=== PATIENT | female | born 1965 | race Caucasian/White ===

== ENCOUNTER → 2023-12-02 08:52 | Outpatient (REF) | payer OTHER, SELFPAY | LOC: WDC 08:52 | PROVIDERS: ATTENDING PHYSICIAN Obstetrics & Gynecology Gynecology; FAMILY PHYSICIAN Nurse Practitioner | DX: Z12.31 Encounter for screening mammogram for malignant neoplasm of breast (principal) | CPT/HCPCS: 77063; 77067 ==

== ENCOUNTER 2023-12-19 14:04 | Emergency (ER) | payer OTHER, SELFPAY ==
[2023-12-19 14:06] VITALS: BP 171/97
--- NOTE | 2023-12-19 14:56 | ED.GENMED ---
History of Present Illness
<Marilyn Rajput PA-C - Last Filed: 12/20/23 17:29>
General
Chief Complaint: Abdominal Symptoms
Source: patient
Exam Limitations: none
Time Seen by Provider: 12/19/23 14:31
Nursing documentation reviewed up to this point in time: agreed with
Travel History
Have you had any contact with someone who has COVID-19?: No
Do you have any symptoms of coronavirus? Fever > 100 degrees, chills, cough, shortness of breath, sore throat, loss of taste or smell, muscle aches, or headache?: No
History of Present Illness
History of Present Illness:
Patient is a 58 year old female with no significant past medical history presenting to the emergency department for evaluation of persistent nausea, vomiting, diarrhea. Patient states symptoms initially started on Monday but were improved both
Monday and Monday. Starting this morning�symptoms returned with an associated migraine. She has had multiple episodes of vomiting throughout the day today. She also endorses mild diffuse abdominal pain. She has been unable to keep any food or
water down today. She denies any hematemesis. She denies any hematochezia.
Patient denies any fever, chills, chest pain, shortness of breath.
Of note�patient did have her first injection of Wegovy last prior to symptom onset. She did contact her weight loss specialist who prescribed Wegovy but has not had a chance to speak to them.
Patient has no history of abdominal surgeries. Last menstrual period was many years ago.
Phy Exam
<Marilyn Rajput PA-C - Last Filed: 12/20/23 17:29>
Physical Exam
Physical Exam:
General: Appears moderately uncomfortable, eyes closed, retching on initial evaluation
Vitals: Hypertensive, otherwise vital signs stable; afebrile
HEENT: Atraumatic, normocephalic; pupils equal round reactive light bilaterally, no nystagmus, protecting airway
Neck: appears supple, no meningeal signs
CV: Regular rate and rhythm, heart sounds normal, no evidence of cyanosis
Resp: No accessory muscle use
Abd: Soft, very mild diffuse tenderness without rebound or guarding, non-distended
Extremities: No deformities, no evidence of cyanosis or edema; DP pulses palpable equal bilateral
Neuro: alert and oriented; grossly intact
Psych: Normal affect
Skin: Intact, no rashes
Course
<Marilyn Rajput PA-C - Last Filed: 12/20/23 17:29>
Orders/Labs/Results
Orders:
Orders
12/19/23 14:55
Complete Blood Count/With Diff Urgent
Comprehensive Metabolic Panel Urgent
Lipase Urgent
12/19/23 15:04
Electrocardiogram (*1) Urgent
Reason for Study: QTc Monitoring
EKG- Treatment ONCE
0.9% Sodium Chloride 1000 ml [Nss] 1,000 ml IV BOLUS
Ketorolac [Toradol] 15 mg IV NOW STA
Ondansetron Injectable [Zofran] 4 mg IV NOW STA
12/19/23 15:21
Pantoprazole [Protonix IV] 40 mg IV NOW STA
12/19/23 16:15
0.9% Sodium Chloride 1000 ml [Nss] 1,000 ml IV BOLUS
Diphenhydramine [Benadryl] 25 mg IV NOW STA
Metoclopramide [Reglan] 10 mg IV NOW STA
12/19/23 16:17
CT Head W/o Iv Contrast Urgent
Comment:
Reason For Exam: headache
Abnormal Lab Results
12/19/23
14:55
MPV 11.5 H fL
(7.4-10.4)
Sodium 132 L mmol/L
(135-145)
BUN 19 H mg/dl
(7-17)
Creatinine 0.5 L mg/dL
(0.6-1.0)
Glucose 144 H mg/dl
(70-99)
12/19/23 14:55
12/19/23 14:55
Vital Signs
Initial and Last Documented VS:
Initial Vital Signs
Temp Pulse Resp BP Pulse Ox
97.8 F 81 18 171/97 100
12/19/23 14:06 12/19/23 14:06 12/19/23 14:06 12/19/23 14:06 12/19/23 14:06
Last Documented Vital Signs
Temp Pulse Resp BP Pulse Ox
97.8 F 90 18 171/83 96
12/19/23 14:06 12/19/23 18:45 12/19/23 18:45 12/19/23 18:45 12/19/23 18:45
<Enrique Nieto MD - Last Filed: 12/19/23 21:38>
Orders/Labs/Results
Orders:
Orders
12/19/23 14:55
Complete Blood Count/With Diff Urgent
Comprehensive Metabolic Panel Urgent
Lipase Urgent
12/19/23 15:04
Electrocardiogram (*1) Urgent
Reason for Study: QTc Monitoring
EKG- Treatment ONCE
0.9% Sodium Chloride 1000 ml [Nss] 1,000 ml IV BOLUS
Ketorolac [Toradol] 15 mg IV NOW STA
Ondansetron Injectable [Zofran] 4 mg IV NOW STA
12/19/23 15:21
Pantoprazole [Protonix IV] 40 mg IV NOW STA
12/19/23 16:15
0.9% Sodium Chloride 1000 ml [Nss] 1,000 ml IV BOLUS
Diphenhydramine [Benadryl] 25 mg IV NOW STA
Metoclopramide [Reglan] 10 mg IV NOW STA
12/19/23 16:17
CT Head W/o Iv Contrast Urgent
Comment:
Reason For Exam: headache
Abnormal Lab Results
12/19/23
14:55
MPV 11.5 H fL
(7.4-10.4)
Sodium 132 L mmol/L
(135-145)
BUN 19 H mg/dl
(7-17)
Creatinine 0.5 L mg/dL
(0.6-1.0)
Glucose 144 H mg/dl
(70-99)
12/19/23 14:55
12/19/23 14:55
Vital Signs
Initial and Last Documented VS:
Initial Vital Signs
Temp Pulse Resp BP Pulse Ox
97.8 F 81 18 171/97 100
12/19/23 14:06 12/19/23 14:06 12/19/23 14:06 12/19/23 14:06 12/19/23 14:06
Last Documented Vital Signs
Temp Pulse Resp BP Pulse Ox
97.8 F 90 18 171/83 96
12/19/23 14:06 12/19/23 18:45 12/19/23 18:45 12/19/23 18:45 12/19/23 18:45
<Marilyn Rajput PA-C - Last Filed: 12/20/23 17:29>
MDM/Problems Addressed
Differential Diagnosis Includes:
Not limited to: Medication reaction, gastritis, viral illness, migraine, dehydration, cluster headache doubt intraparenchymal bleed
MDM/Problems Addressed:
Patient is a 58-year-old female presenting for evaluation of 3 days of nausea, vomiting, abdominal pain with associated migraine following first injection of Wegovy. Patient is hypertensive, otherwise vital signs are stable. Exam as above. No
focal tenderness on abdominal exam. Will check basic labs, lipase. Fluids, Toradol, Zofran. Normal QT on EKG. will reassess.
Labs noted. No clinically significant abnormalities. Lipase is normal�do not suspect pancreatitis, known side effect of Wegovy. Given there is no focal tenderness on abdominal exam, normal white count, afebrile�do not suspect acute
intra-abdominal process.
4:00PM: Into reassess patient at bedside. Patient reports mild improvement in nausea following Zofran. She has not vomited since receiving Zofran head is still 'throbbing 'per patient following Toradol. Will try Benadryl and Reglan. Given
severity of headache�will check CT head. Another liter of IV fluids
CT shows no acute abnormalities. Patient with significant improvement in headache. She is tolerating food and water intake. She has been up and walking without any dizziness or worsening of headache. Workup here has been essentially negative�I
suspect the symptoms are likely related to Wegovy injection. Instructed patient to discontinue medication and follow-up with weight loss management/primary care. Will discharge with Zofran. Return precautions discussed. Patient comfortable with
plan.
Chronic conditions affecting care:
Obesity require weight loss medication�Wegovy
Acute Exacerbation and/or Progression of Chronic Illness:
Acute hypertensive
<Marilyn Rajput PA-C - Last Filed: 12/20/23 17:29>
*Radiology
Radiology exam reviewed: preliminary read by ED provider and radiology read reviewed
*Pulse Oximetry
Patient hypoxic: no
*EKG
Interpreted by ED Provider?: Yes
EKG Intrepretation Date: 12/19/23
Interpretation: normal
Heart Rate: 81
Rate: normal
Rhythm: sinus
Interval: normal interval
Ischemia: no ischemia
*Combat Systems Engineer Interpretation
Rate: Combat Systems Engineer- N/A
*Critical Care Note
Total Time (30-74mins, 75-104mins- exclusive of procedures): Not Applicable
ED Attending Note
<Marilyn Rajput PA-C - Last Filed: 12/20/23 17:29>
-
Portions of this chart may have been created with voice recognition software.� Occasional wrong word or��sound alike� substitutions may have occurred due to the inherent limitations of voice recognition software.
<Enrique Nieto MD - Last Filed: 12/19/23 21:38>
ED Attending Note
Patient seen and examined by attending physician: Yes
ED Attending Note:
HPI: 58-year-old female with no significant chronic medical issues presents for evaluation of headache, dizziness, nausea, vomiting, abdominal cramping, diarrhea since starting Wegovy. She had her first dose on and then 2 days later
developed above symptoms. They have been persistent since that time. Denies any neck pain or stiffness. No fevers or chills. No chest pain or shortness of breath. Denies any other complaints.
ROS: Positive for headache, dizziness, nausea, vomiting, diarrhea, abdominal cramping; negative for fever, chills, neck pain, neck stiffness, chest pain, shortness of breath
Physical exam:
General: Awake, alert, oriented x3; appears uncomfortable holding emesis basin
Head: Normocephalic, atraumatic
Eyes: Conjunctiva normal, EOMI, pupils equal round reactive to light bilaterally
Throat: Airway intact, dry mucous membranes
Neck: Trachea midline, supple without meningismus
Lungs: Clear to auscultation bilaterally, no wheezing, rales, rhonchi
Heart: Regular rate and rhythm, no murmurs, gallops, or rubs
Abd: Soft, non distended, completely nontender to deep palpation
Neuro: Cranial nerves intact, speech fluid, no motor or sensory deficits
Skin: no rash
Extremities: No edema in extremities, equal pulses in all extremities
Differential diagnosis: Gastroenteritis, pancreatitis, cholelithiasis/cholecystitis, migraine, vertigo
Medical decision makin-year-old female presents for dizziness, headache, nausea, vomiting, abdominal cramping that started shortly after beginning Wegovy for weight loss. Hypertensive but otherwise normal vitals. Exam as above. Sent labs
including a CBC and CMP which were unremarkable. Lipase is normal. Sent for CT head which was negative. She was treated symptomatically and had significant improvement. Tolerating p.o. food and drink. Ambulatory with no dizziness. Suspect
symptoms likely related to Wegovy. Advised to discontinue this medication. Will follow-up with PCP for blood pressure recheck. All questions answered.
Chronic conditions affecting care: Obesity requiring treatment with Wegovy�now presenting with symptoms likely related to this medication
Acute exacerbation or progression of chronic illness: Acutely hypertensive
History source: Patient, family
Data reviewed: N/A
Medications/testing considered: N/A
Social determinants of health: N/A
Discussion with other providers: N/A
Discharge Plan
Departure
Patient Disposition: Home (Routine Discharge)
Date of Disposition: 12/19/23
Time of Disposition: 18:33
Patient with high blood pressure during this ER visit?: Yes
Condition: Good
Covid-19: Not Applicable
Discharge Problem:
Nausea and vomiting, Headache
Instructions: Nausea and Vomiting, Adult (DC), Headache, Adult (DC)
Prescriptions:
New
ondansetron 4 mg tablet,disintegrating
4 mg PO Q8H PRN (Reason: nausea and vomiting) Qty: 10 0RF
No Action
alprazolam 0.5 MG tablet
0.25 mg PO Q6HPRN PRN (Reason: ANXIETY)
calcium carbonate [calcium] 500 MG tablet
500 mg PO DAILY
escitalopram oxalate 20 MG tablet
20 mg PO DAILY
cholecalciferol (vitamin D3) 1,000 UNITS tablet
1,000 units PO DAILY
multivitamin with folic acid [Tab-A-Slim] 1 TABLET tablet
1 tab PO DAILY
Quercetin
1 tab PO DAILY
Zinc
1 tab PO DAILY
omeprazole 10 MG capsule,delayed release(DR/EC)
10 mg PO PRN PRN (Reason: reflux)
Referrals:
Verdolini,Erendira Karli, QUILLER HAND [Family Provider] - Follow up in 2-3 days
Activity Restrictions/Additional Instructions:
- Return to the emergency department with any high fevers, severe headache or neck pain, persistent nausea/vomiting, severe abdominal pain, signs of severe dehydration, chest pain, shortness of breath, worsening in current symptoms, or any other
concerns
-As discussed�you can take Motrin/Tylenol as needed for headache. A prescription for Zofran has been sent to your pharmacy for nausea. You can take this every 8 hours as needed for persistent/severe nausea
-It is important to stay well-hydrated. Try to eat a bland diet and advance as tolerated.
-As discussed�you should not take any more doses of your Wegovy until you follow-up with your prescribing physician for further evaluation/management.
-Follow-up with your primary care provider to ensure symptoms are improving the next few days.
Interventions
Interventions:
*Risk Screen - Suicide Last Done: 12/19/23 14:11
*General Assessment Last Done: 12/19/23 18:46
*Neglect/Abuse Screening Last Done: 12/19/23 14:11
ED- Fall Risk Assessment Last Done: 12/19/23 18:46
*ED COVID-19 Vaccine History Last Done: 12/19/23 14:06
*Nursing Disposition Last Done: 12/19/23 18:46
NU-Vpvixc-Eqnlsslwox Assessment Last Done: 12/19/23 14:51
Discharge Date and Time
Discharge Date/Time: 12/19/23 18:46
Print Language: BOTSWANAN
[2023-12-19 15:07] LABS: % Basophils 0.7 % (0-2); % Eosinophils 0.7 % (0-6); % Immature Granulocytes 0.3 % (0-0.5); % Lymphocytes 27.4 % (20.5-51.1); % Monocytes 7.9 % (1.7-9.3); Absolute Lymphocytes 1.6 10^3/uL (1.2-3.4); Absolute Monocytes 0.5 10^3/uL (0.1-0.6); Absolute Neutrophils 3.7 10^3/uL (1.4-6.5); Hematocrit 44.2 % (37.0-47.0); Hemoglobin 15.3 g/dL (12.0-16.0); Mean Corp Hgb Conc. 34.6 g/dL (33.0-37.0); Mean Corpuscular Hgb 29.8 pg (27.0-31.0); Mean Platelet Volume 11.5 fL (7.4-10.4); Nucleated Red Blood Cells % 0 %; Platelet Count 190 10^3/uL (130-400); Red Blood Cell Count 5.14 10^6/uL (4.20-5.40); Red Cell Dist. Width 12.3 % (11.5-14.5); White Blood Cell Count 5.9 10^3/uL (4.8-10.8)
[2023-12-19] MEDS: ZOFRAN 4 MG IV (15:12)
[2023-12-19] MEDS: NSS 1000 IV ×2 (15:12→16:25)
[2023-12-19] MEDS: TORADOL 15 MG IV (15:12)
[2023-12-19 15:21] LABS: ALT (SGPT) 33 U/L (0-35); AST (SGOT) 33 U/L (14-36); Albumin 4.9 g/dl (3.5-5.0); Alkaline Phosphatase 85 U/L (38-126); Blood Urea Nitrogen 19 mg/dl (7-17); Calcium 10.1 mg/dl (8.4-10.2); Carbon Dioxide 24 mmol/L (22-30); Chloride 99 mmol/L (98-107); Glucose 144 mg/dl (70-99); Lipase 66 U/L (23-300); Potassium 3.8 mmol/L (3.5-5.1); Sodium 132 mmol/L (135-145); Total Bilirubin 0.8 mg/dl (0.2-1.3); Total Protein 7.9 g/dl (6.3-8.2); eGFR > 60.00
[2023-12-19] MEDS: PROTONIX IV 40 MG IV (15:34)
[2023-12-19] MEDS: BENADRYL 25 MG IV (16:22)
[2023-12-19] MEDS: REGLAN 10 MG IV (16:22)
[2023-12-19 18:45] VITALS: BP 171/83
== END 2023-12-19 18:46 | disposition home or self-care (01) ==
LOC: EMR 14:04
PROVIDERS: Physician Assistant; EMERGENCY PHYSICIAN Emergency Medicine; FAMILY PHYSICIAN Nurse Practitioner
DX: R11.2 Nausea with vomiting, unspecified (principal); R51.9 Headache, unspecified; R10.9 Unspecified abdominal pain; R42 Dizziness and giddiness; E66.9 Obesity, unspecified; R03.0 Elevated blood-pressure reading, without diagnosis of hypertension
CPT/HCPCS: 99285; 96374; 96375 ×4; 96361; 70450; 80053; 83690; 85025; 93005

== ENCOUNTER 2024-05-31 17:18 | Observation (INO) | payer OTHER, SELFPAY ==
[2024-05-31] VITALS (7 sets, daily range): BP systolic 119–210; BP diastolic 65–106; BMI 29.3; BMI 29.6
--- NOTE | 2024-05-31 13:06 | ED.GENMED ---
ED Provider Triage
<Anthony Clement PA-C - Last Filed: 05/31/24 13:10>
-
Patient seen by provider in Triage?: Seen in Triage
Attestation: A medical screening examination has been initiated by a qualified medical provider. Based on the assessment performed at this time, it has been determined that an emergent medical condition may exist and the patient has been informed
that further medical evaluation and possible additional diagnostic testing may be needed.
HPI: 59-year-old female presenting to the emergency department for evaluation after about an hour prior to arrival to the ER she started to experience some word finding difficulty. Is currently here with her daughter but daughter was not present at
time of these events. Patient also notes feeling a little bit nauseous and tingling in her fingertips. She states that symptoms are now mostly resolved. Patient has no history of stroke and no family history of stroke. No cigarettes or tobacco
use. Patient's blood pressure in triage noted to be 188/[address] of the head ordered given patient's current hypertension. Possible TIA versus hypertensive encephalopathy versus anxiety as patient does note she is very anxious
and has a history of anxiety.
GENERAL: Alert , in no apparent distress
EYE: No visual abnormalities.
NECK: Trachea midline
ENT: No visible abnormalities.
LUNGS: No acute respiratory distress
NEUROLOGICAL: Alert and oriented
SKIN: Skin intact. No visible changes.
MUSCULOSKELETAL: Moving extremities normally
PSYCH: Normal and appropriate interaction.
This is a medical evaluation conducted in person to initiate diagnostic evaluation and provide initial therapeutics. Please see further documentation by the treating clinician.
History of Present Illness
<Anthony Clement PA-C - Last Filed: 05/31/24 13:10>
General
Chief Complaint: Change in Mental Status
Time Seen by Provider: 05/31/24 16:48
<Buck Banks MD - Last Filed: 05/31/24 19:15>
General
Source: patient
Exam Limitations: none
History of Present Illness
History of Present Illness:
Patient around noon time noted some slight right visual issues and trouble reading. This was followed by difficulty with words that lasted an hour. She said the wrong words were coming out of her mouth where they did not make sense. Symptoms have
resolved. No history of same. History of anxiety in the past.
Past History
<Buck Banks MD - Last Filed: 05/31/24 19:15>
Past History
ED Past Medical History: Psychiatric
ED Past Surgical History: Orthopedic
Review of Systems
<Buck Banks MD - Last Filed: 05/31/24 19:15>
Review of Systems
All Other Systems: Not applicable
Respiratory: Reports no symptoms
Cardiac: Reports no symptoms
Phy Exam
<Buck Banks MD - Last Filed: 05/31/24 19:15>
Physical Exam
Physical Exam:
GENERAL: Alert and oriented in no apparent distress
EYE: Orbits normal.
NECK: Supple, no carotid bruit.
ENT: Pharynx without erythema
CARDIAC: Regular rate and rhythm without any obvious murmurs.
LUNGS: Clear breath sounds,normal
ABDOMEN: Soft, without focal tenderness or distention
NEUROLOGICAL: Alert and oriented , speech normal. Finger to nose normal. No drift. Cranial nerves II through XII intact. Light touch intact.
SKIN: Warm and dry, no rash or lesion, no discoloration, skin intact.
MUSCULOSKELETAL: No edema,no deformity.Good color
PSYCH: Normal and appropriate interaction.
Course
<Anthony Clement PA-C - Last Filed: 05/31/24 13:10>
Orders/Labs/Results
Orders:
Orders
05/31/24 13:08
CT Head W/o Iv Contrast Urgent
Comment:
Reason For Exam: word finding difficulty, HTN
05/31/24 13:19
Comprehensive Metabolic Panel Urgent
05/31/24 16:36
Complete Blood Count/With Diff Urgent
05/31/24 16:59
Cardiac Monitoring- Treatment ONCE
IV Insert/Care/Rem.- Treatment PRN
05/31/24 17:00
Electrocardiogram (*1) Stat
Reason for Study: Other
Other Reason for Exam: neuro symptoms
EKG- Treatment ONCE
05/31/24 17:04
Admit/Transfer Patient As Directed
Co-Sign Provider:
Level of Care: Observation services
Assign to:: Telemetry
Physician / Group: alcony
Diagnosis: tia
Reason for Telemetry: CVA/TIA
Date to Stop Telemetry: 06/03/24
Time to Stop Telemetry: 11:00
Code Status As Directed
Resuscitation Status: Full Code
PRN Pain Medication Management As Directed
May give lesser potent ordered pain med per pt: Yes
preference::
Protocol:: Medication orders for pain may be administered in a
manner that supports deferring to patient preference
when the pt is:
- Requesting an ordered lesser potent pain medication.
Least to most potent pain medications are defined
as: acetaminophen < NSAID < tramadol < opioids
(morphine, oxycodone, hydromorphone).
- Requesting a lesser dose of the same medication IF
ORDERED.
- Requesting a less intrusive route of administration
if both routes are prescribed by the provider (PO <
IV).
06/03/24 11:00
DC Protocol for Telemetry ONCE
Abnormal Lab Results
05/31/24 05/31/24
13:19 16:36
Hgb 16.2 H g/dL
(12.0-16.0)
MPV 11.5 H fL
(7.4-10.4)
BUN 23 H mg/dl
(7-17)
Glucose 125 H mg/dl
(70-99)
05/31/24 16:36
05/31/24 13:19
Vital Signs
Initial and Last Documented VS:
Initial Vital Signs
Pulse Resp BP Pulse Ox
82 18 176/104 100
05/31/24 13:05 05/31/24 13:05 05/31/24 13:05 05/31/24 13:05
Last Documented Vital Signs
Temp Pulse Resp BP Pulse Ox
98.6 F 84 20 201/81 98
05/31/24 15:02 05/31/24 17:15 05/31/24 17:15 05/31/24 17:00 05/31/24 17:15
<Buck Banks MD - Last Filed: 05/31/24 19:15>
Orders/Labs/Results
Orders:
Orders
05/31/24 13:08
CT Head W/o Iv Contrast Urgent
Comment:
Reason For Exam: word finding difficulty, HTN
05/31/24 13:19
Comprehensive Metabolic Panel Urgent
05/31/24 16:36
Complete Blood Count/With Diff Urgent
05/31/24 16:59
Cardiac Monitoring- Treatment ONCE
IV Insert/Care/Rem.- Treatment PRN
05/31/24 17:00
Electrocardiogram (*1) Stat
Reason for Study: Other
Other Reason for Exam: neuro symptoms
EKG- Treatment ONCE
05/31/24 17:04
Admit/Transfer Patient As Directed
Co-Sign Provider:
Level of Care: Observation services
Assign to:: Telemetry
Physician / Group: htay
Diagnosis: tia
Reason for Telemetry: CVA/TIA
Date to Stop Telemetry: 06/03/24
Time to Stop Telemetry: 11:00
Code Status As Directed
Resuscitation Status: Full Code
PRN Pain Medication Management As Directed
May give lesser potent ordered pain med per pt: Yes
preference::
Protocol:: Medication orders for pain may be administered in a
manner that supports deferring to patient preference
when the pt is:
- Requesting an ordered lesser potent pain medication.
Least to most potent pain medications are defined
as: acetaminophen < NSAID < tramadol < opioids
(morphine, oxycodone, hydromorphone).
- Requesting a lesser dose of the same medication IF
ORDERED.
- Requesting a less intrusive route of administration
if both routes are prescribed by the provider (PO <
IV).
06/03/24 11:00
DC Protocol for Telemetry ONCE
Abnormal Lab Results
05/31/24 05/31/24
13:19 16:36
Hgb 16.2 H g/dL
(12.0-16.0)
MPV 11.5 H fL
(7.4-10.4)
BUN 23 H mg/dl
(7-17)
Glucose 125 H mg/dl
(70-99)
05/31/24 16:36
05/31/24 13:19
Vital Signs
Initial and Last Documented VS:
Initial Vital Signs
Pulse Resp BP Pulse Ox
82 18 176/104 100
05/31/24 13:05 05/31/24 13:05 05/31/24 13:05 05/31/24 13:05
Last Documented Vital Signs
Temp Pulse Resp BP Pulse Ox
98.6 F 84 20 201/81 98
05/31/24 15:02 05/31/24 17:15 05/31/24 17:15 05/31/24 17:00 05/31/24 17:15
<Buck Banks MD - Last Filed: 05/31/24 19:15>
MDM/Problems Addressed
Differential Diagnosis Includes:
Patient is describing expressive aphasia with some visual issues. Neurologic exam is normal now. Warrants inpatient workup
<Buck Banks MD - Last Filed: 05/31/24 19:15>
*Radiology
Radiology exam reviewed: radiology read reviewed (Negative)
*Pulse Oximetry
Patient hypoxic: no
*EKG
Interpreted by ED Provider?: Yes
Interpretation: normal
Comparison EKG: no changes
Heart Rate: 67
Rate: normal
Rhythm: sinus
Challenge: normal axis
Interval: normal interval
QRS Pattern: normal QRS
Ischemia: no ischemia
*Assistant Associate Professor Interpretation
Rate: normal
Interpretation: normal
Heart Rate: 70
Rhythm: sinus
*Critical Care Note
Total Time (30-74mins, 75-104mins- exclusive of procedures): Not Applicable
Data Reviewed
Review of Other/Old Records Reveals: Labs, Records and Testing
ED Attending Note
<Anthony Clement PA-C - Last Filed: 05/31/24 13:10>
-
Portions of this chart may have been created with voice recognition software.� Occasional wrong word or��sound alike� substitutions may have occurred due to the inherent limitations of voice recognition software.
Discharge Plan
Departure
Patient Disposition: Admit
Date of Disposition: 05/31/24
Time of Disposition: 17:05
Presentation/result/management discussed w/ accepting MD/DO: Hospitalist
Discharge Problem:
Expressive aphasia/TIA
Interventions
Interventions:
*Risk Screen - Suicide Last Done: 05/31/24 13:05
*General Assessment Last Done: 05/31/24 13:05
*Neglect/Abuse Screening Last Done: 05/31/24 16:23
ED- Fall Risk Assessment Last Done: 05/31/24 16:23
*ED COVID-19 Vaccine History Last Done: 05/31/24 13:05
ED- Pulmonary Assessment Last Done: 05/31/24 16:23
ED- Neurological Assessment Last Done: 05/31/24 16:23
ED- Cardiac Assessment Last Done: 05/31/24 16:23
ED Swallowing Screen Last Done: 05/31/24 17:22
[2024-05-31 13:47] LABS: ALT (SGPT) 26 U/L (0-35); AST (SGOT) 28 U/L (14-36); Albumin 4.6 g/dl (3.5-5.0); Alkaline Phosphatase 73 U/L (38-126); Blood Urea Nitrogen 23 mg/dl (7-17); Calcium 9.4 mg/dl (8.4-10.2); Carbon Dioxide 26 mmol/L (22-30); Chloride 101 mmol/L (98-107); Glucose 125 mg/dl (70-99); Potassium 4.3 mmol/L (3.5-5.1); Sodium 139 mmol/L (135-145); Total Bilirubin 0.7 mg/dl (0.2-1.3); eGFR > 60.00
[2024-05-31 16:44] LABS: % Basophils 0.6 % (0-2); % Eosinophils 1.2 % (0-6); % Immature Granulocytes 0.3 % (0-0.5); % Lymphocytes 26.2 % (20.5-51.1); % Monocytes 6.4 % (1.7-9.3); % Neutrophils 65.3 % (42.2-75.2); Absolute Eosinophils 0.1 10^3/uL (0-0.7); Absolute Lymphocytes 1.9 10^3/uL (1.2-3.4); Absolute Monocytes 0.5 10^3/uL (0.1-0.6); Absolute Neutrophils 4.7 10^3/uL (1.4-6.5); Hemoglobin 16.2 g/dL (12.0-16.0); Mean Corp Hgb Conc. 35.2 g/dL (33.0-37.0); Mean Corpuscular Hgb 30.6 pg (27.0-31.0); Mean Corpuscular Volume 86.8 fL (81.0-99.0); Mean Platelet Volume 11.5 fL (7.4-10.4); Nucleated Red Blood Cells % 0 %; Platelet Count 195 10^3/uL (130-400); Red Cell Dist. Width 12.6 % (11.5-14.5); White Blood Cell Count 7.2 10^3/uL (4.8-10.8)
--- NOTE | 2024-05-31 17:14 | HPS.HSE ---
Family Physician
-
Family Physician: Noé Posadas
Chief Complaint
-
some word finding difficulty
History of Present Illness
59F non smoker BiB daughter HX Anxiety and depression on PRN Alprazolam and Escitalopram seen at ER
- pw experience some word finding difficulty
- feeling a little bit nauseous and tingling in her fingertips.
- She states that symptoms are now mostly resolved.
- No prior HX stroke and no family history of stroke.
- Patient's blood pressure in triage noted to be 188/[address] of the head ordered given patient's current hypertension.
Medical History
Past Medical History
Past Medical History: Reports HTN (was listed but not on any meds ) and Psychiatric (anxiey and depression )
Past Surgical History: Reports None
Social History
Tobacco: Non-smoker
Alcohol: None
Family History
Family History: Not pertinent
Allergies / Home Medications
Allergies reflects when Allergies were last updated in [facility].
Home Medications with original date entered in [facility]
Allergy/Medication List:
Allergies
Allergy/AdvReac Type Severity Reaction Status Date / Time
nitrofurantoin Allergy RASH/ITCHIN Verified 05/31/24 13:10
G
Home Medications
Quercetin 1 tab PO DAILY 11/19/20
Zinc 1 tab PO DAILY 11/19/20
alprazolam 0.5 mg tablet 0.25 mg PO Q6HPRN PRN ANXIETY 11/19/20
calcium carbonate (calcium) 500 mg PO DAILY 11/19/20
cholecalciferol (vitamin D3) 25 mcg (1,000 unit) tablet 1,000 units PO DAILY 11/19/20
escitalopram oxalate 20 mg tablet 20 mg PO DAILY 11/19/20
multivitamin with folic acid 400 mcg tablet (Tab-A-Slim) 1 tab PO DAILY 11/19/20
omeprazole 10 mg capsule,delayed release 10 mg PO PRN PRN reflux 11/27/20
ondansetron 4 mg disintegrating tablet 4 mg PO Q8H PRN nausea and vomiting #10 tabs 12/19/23
Review of Systems
-
Constitutional: Reports No Symptoms
EENT: Reports No Symptoms
Respiratory: Reports No Symptoms
Cardiac: Reports No Symptoms
Abdomen/GI: Reports No Symptoms
: Reports No Symptoms
Musculoskeletal: Reports No Symptoms
Skin: Reports No Symptoms
Neurological: Reports No Symptoms
Endocrine: Reports No Symptoms
Hematologic/Lymphatic: Reports No Symptoms
Psych: Reports No Symptoms
Physical Exam
Vital Signs
Vital Signs
Temp Pulse Resp BP Pulse Ox
98.6 F 66 18 165/89 100
05/31/24 15:02 05/31/24 15:02 05/31/24 13:05 05/31/24 15:02 05/31/24 16:23
Physical Exam
General: Well Developed, Well Nourished and No Apparent Distress
HEENT: NormoCephalic, Moist mucous membranes and Atraumatic
Respiratory: Clear
Cardiac: S1/S2 and Regular Rhythm; No Murmur or Rub
GI: Soft, Non Tender, Non Distended and Normal Bowel Sounds; No Organomegaly
Rectal: Deferred by Provider
Musculoskeletal: No Clubbing, No Cyanosis and No Edema
Skin: No Rash
Neuro: AO x 3, No Motor Deficits and Nonfocal/grossly intact
Laboratory Results
-
05/31/24 16:36
05/31/24 13:19
Laboratory Results
Total Bilirubin 0.7 mg/dl (0.2-1.3) 05/31/24 13:19
AST 28 U/L (14-36) 05/31/24 13:19
ALT 26 U/L (0-35) 05/31/24 13:19
Alkaline Phosphatase 73 U/L (38-126) 05/31/24 13:19
Data Reviewed
-
CT Scan: Report Reviewed by me
Lab Data: Labs Reviewed by me
Impression/Plan
-
Vital Signs
Temp Pulse Resp BP Pulse Ox
98.6 F 66 18 165/89 100
05/31/24 15:02 05/31/24 15:02 05/31/24 13:05 05/31/24 15:02 05/31/24 16:23
Abnormal Lab Results
05/31/24 05/31/24
13:19 16:36
Hgb 16.2 H
MPV 11.5 H
BUN 23 H
Glucose 125 H
HCT: No acute intracranial abnormality.
No prior hospitalist admission:
ASSESSMENT & PLAN
Possible TIA versus hypertensive encephalopathy versus anxiety
-No prior HX CVA
- NEG HCT
- Brain MRI in AM
- MRA H & N
- ECHO
- agree with baby ASA daily
- Atorvastatin daily
- A1 C and lipids
- c/w Xanax PRN
- Neuro consulted
Uncontrol HTN
- IV Hydralazine PRN SBP > 185, DBP > 110
DVT Px:SCD
Code: full code
Obs TLM
--- NOTE | 2024-05-31 18:04 | CON.NEURO ---
Consultation
Order
Date of Consultation: 05/31/24
Requesting Provider: Maribel Vaz CRNP
Reason for Consult: Expressive aphasia
Neurology consultation note
HPI: The patient presents with a chief complaint of sudden difficulty in expressing thoughts lasting for 30 minutes. She reports that she started to garble her words and became very nervous. She removed her contacts due to the blurry vision. The
patient mentions that she was unable to greet her neighbor while walking her dog, which prompted her to seek medical attention.
The patient states that her ability to express thoughts has returned to normal and denies any weakness on one side. The patient denies having headaches at the moment and does not have a history of migraines. She denies any changes in vision or
tingling in her body, except when experiencing anxiety.
The patient has never experienced a similar episode before and consumes 2-3 cups of coffee daily.
ER VS: 176/83�210/84, 82, afebrile
EKG: NSR, QTc Int : 424 ms
PDMP: Alprazolam 0.25 Mg�60 tabs filled in on 02/13/2024.
Labs: Normal sodium, WBCs, glucose�125,
PMH: QUINTEN, vit D deficiency, GERD
PSH:D&C and R carpal tunnel surgery
SH: ; works for [employer]; nonsmoker;
FH:father-CML
All:Nitrofurantoin
ROS:Constitutional: Negative. Negative for chills, fever and unexpected weight change.
HENT: Negative for ear pain, hearing loss, tinnitus and trouble swallowing.
Eyes: Negative. Negative for photophobia, pain and visual disturbance.
Respiratory: Negative for cough, choking and shortness of breath.
Cardiovascular: Negative for chest pain, palpitations and leg swelling.
Gastrointestinal: Negative for abdominal pain and vomiting.
Endocrine: Negative. Negative for cold intolerance.
Genitourinary: Negative for dysuria, flank pain and urgency.
Musculoskeletal: Negative for back pain, gait problem, neck pain and neck stiffness.
Skin: Negative for rash.
Allergic/Immunologic: Negative. Negative for immunocompromised state.
Neurological: Negative for dizziness, tremors, seizures, speech difficulty, numbness and headaches.
Psychiatric/Behavioral: Negative for behavioral problems, confusion and hallucinations.
General: Well developed. In no acute distress.
Cardio: Regular rate and rhythm without murmur. Extremities are without cyanosis or edema.
Neuro:
Mental Status: Alert, oriented to person, place, and date. Normal attention and recall. Good fund of knowledge. Follows complex requests across the midline. Comprehension, naming, and repetition intact. Immediate and delayed recall 3/3.
Cranial Nerves: . Pupils are equally round and reactive to light. EOMs full. Visual campbell full to confrontation. No ptosis. No nystagmus. V1-V3 intact to light touch and pinprick bilaterally, symmetric. Face symmetric. Normal hearing AU.
The palate elevated well. SCMs and traps 5/5. Tongue midline. No dysarthria.
Motor: Normal bulk and tone. No pronator or arm drift. Strength 5/5 throughout. No clonus.
Reflexes: 3+ throughout the upper extremities and knees. 2/2 in AJs. Plantar responses flexor bilaterally.
Sensory: Normal pinprick, vibration and JPS.
Coordination: No dysmetria or tremor.
Gait: deferred
Assessment and Plan:
I. Hypertensive emergency
II. Right MCA territory TIA
III. QUINTEN
-Continue Telemetry monitoring.
-Aspiration precautions.
-Cautious lowering of BP by approximately 15 % during the first 24 hours is SBP >220 mmHg or diastolic blood pressure >120 mmHg;
-Restart antihypertensive medications during if BP>140/90 mmHg who are neurologically stable in 24 to 48 hours after stroke onset;
-TTE with bubble studies, if unremarkable-please proceed with EBEN.
-Start ASA 81 mg QD
-Plavix 75 mg QD for 21 days.
-Lipitor 40 mg QHS.
-Please check HbA1C, LDL.
-PT.
-DVT prophylaxis.
I personally reviewed all radiology and labs along with past medical records pertinent to current medical problems. Total time spent in patient care is 60 minutes.
Thank you for allowing us to participate in the care of this patient. We will continue to follow. Please do not hesitate to contact us with any questions or concerns.
Subjective/Objective
Subjective Data
Date of Service: May 31, 2024
Objective Data
Vital Signs
Temp Pulse Resp BP Pulse Ox
37.0 C 84 20 201/81 98
05/31/24 15:02 05/31/24 17:15 05/31/24 17:15 05/31/24 17:00 05/31/24 17:15
Lab Results
05/31/24 16:36
05/31/24 13:19
Sodium 139 mmol/L (135-145) 05/31/24 13:19
Potassium 4.3 mmol/L (3.5-5.1) 05/31/24 13:19
BUN 23 mg/dl (7-17) H 05/31/24 13:19
Glucose 125 mg/dl (70-99) H 05/31/24 13:19
Calcium 9.4 mg/dl (8.4-10.2) 05/31/24 13:19
Patient Allergies
nitrofurantoin Allergy (Verified 05/31/24 13:10)
RASH/ITCHING
Medications
-
Home Medications
�Medication �Instructions �Recorded
Quercetin 1 tab PO DAILY 11/19/20
Zinc 1 tab PO DAILY 11/19/20
alprazolam 0.5 mg tablet 0.25 mg PO Q6HPRN PRN ANXIETY 11/19/20
calcium carbonate (calcium) 500 mg PO DAILY 11/19/20
cholecalciferol (vitamin D3) 25 1,000 units PO DAILY 11/19/20
mcg (1,000 unit) tablet
escitalopram oxalate 20 mg tablet 20 mg PO DAILY 11/19/20
multivitamin with folic acid 400 1 tab PO DAILY 11/19/20
mcg tablet (Tab-A-Slim)
omeprazole 10 mg capsule,delayed 10 mg PO PRN PRN reflux 11/27/20
release
ondansetron 4 mg disintegrating 4 mg PO Q8H PRN nausea and 12/19/23
tablet vomiting #10 tabs
--- NOTE | 2024-05-31 22:00 | PTCARENOTE ---
Patient admitted from ED. AAO x3, on RA, in no acute distress. Patient oriented to room and call dejesus within reach.
[2024-05-31] MEDS: XANAX 0.25 MG PO (22:22)
[2024-05-31] MEDS: LIPITOR 20 MG PO (22:22)
[2024-06-01 03:00] VITALS: BP 105/56
[2024-06-01 07:35] VITALS: BP 162/97
[2024-06-01] MEDS: XANAX 0.25 MG PO (08:26)
[2024-06-01] MEDS: LOW STRENGTH ASPIRIN 81 MG PO (08:26)
[2024-06-01] MEDS: PLAVIX 75 MG PO (08:26)
[2024-06-01 08:28] LABS: Hematocrit 44.5 % (37.0-47.0); Hemoglobin 15.6 g/dL (12.0-16.0); Mean Corp Hgb Conc. 35.1 g/dL (33.0-37.0); Mean Corpuscular Hgb 30.7 pg (27.0-31.0); Mean Corpuscular Volume 87.6 fL (81.0-99.0); Mean Platelet Volume 11.9 fL (7.4-10.4); Platelet Count 179 10^3/uL (130-400); Red Blood Cell Count 5.08 10^6/uL (4.20-5.40); Red Cell Dist. Width 12.8 % (11.5-14.5); White Blood Cell Count 4.4 10^3/uL (4.8-10.8)
[2024-06-01 08:59] LABS: Blood Urea Nitrogen 16 mg/dl (7-17); Calcium 9.5 mg/dl (8.4-10.2); Carbon Dioxide 28 mmol/L (22-30); Chloride 101 mmol/L (98-107); Estimated Creatinine Clearance 83 ml/min; Glucose 95 mg/dl (70-99); HDL Cholesterol 36 mg/dl; LDL Cholesterol, Calculated 143 mg/dl; Potassium 4.3 mmol/L (3.5-5.1); Sodium 141 mmol/L (135-145); Total Cholesterol 218 mg/dl (50-199); Triglyceride 195 mg/dl (10-149); Very Low Density Lipoprotein 39 mg/dl (0-30); eGFR > 60.00
--- NOTE | 2024-06-01 10:00 | PTOTSP ---
SPEECH THERAPY SWALLOW EVALUATION:
Patient exhibits grossly functional oropharyngeal swallow at this time. No history of dysphagia noted. Patient admitted with speech difficulty lasting 30 minutes per pt report, with full resolution of symptoms at this time per pt report. No overt
speech/language/cognitive communication impairments noted during informal assessment. Recommend continue Regular texture solids, thin liquids. Medications whole with liquid as best tolerated. General aspiration precautions. Skilled ST services for
swallow therapy are not indicated at this time. ST to monitor MRI results/diagnosis. Should MRI demonstrate intracranial abnormality, ST to complete full speech/language/cognitive communication evaluation at that time. Otherwise ST to sign off.
RECOMMEND:
1) Regular texture diet, thin liquids
2) Medications whole with liquid as best tolerated
3) General aspiration precautions
4) No skilled ST services for swallow are indicated at this time
[2024-06-01 11:31] VITALS: BP 136/85
[2024-06-01 11:31] LABS: Glycohemoglobin (HgbA1c) 5.1 % (4.0-5.6)
--- NOTE | 2024-06-01 11:37 | W.PN.HOSP.TC ---
Addendum entered and electronically signed by Ej Tello MD 06/01/24 15:33:
Discussed MRI results with patient. Discussed with neurology recommending dual antiplatelet agents for additional 20 days. Patient agreeable for discharge home. Also agreed to be started on blood pressure medication.
More than 30 minutes spent in discharge including
Final examination of the patient
Summarizing hospital stay
Instructions for continuing care to all relevant caregivers
Preparation of discharge records, prescriptions, and referral forms
Total time spent (in minutes): 53
Original Note:
Today's Communication/Plan
-
await imaging results
asa/plavix
monitor BP
HOME MED REC
Assessment / Plan
Assessment / Plan
Possible TIA versus hypertensive encephalopathy versus anxiety
-No prior HX CVA
- NEG HCT
- Brain MRI
- MRA H & N
- ECHO probably as outpatient-dependign on MRI
- Started on dual antiplatelet agents aspirin and Plavix per neurology
- Atorvastatin daily
- A1c of 5.1. Total cholesterol and LDL elevated. Increase Lipitor dose
- c/w Xanax PRN
- Cont with neuro checks
- Neuro consulted
Uncontrol HTN
- IV Hydralazine PRN SBP > 185, DBP > 110
-Start bp meds 24h later after symptoms onset.
Severe anxiety disorder
-Recommend OP psych f/u
DVT Px:SCD
Code: full code
discussed with spouse at bedside in detail
Awaiting home med rec
Anticipated Discharge: Within 24 hours
Subjective/Interval History
-
Date of Service: June 01, 2024
Denies any numbing tingling
Denies any weakness
Denies any headache vision problems neck pain
States of severe anxiety
Objective Data
-
Labs:
Laboratory Results
10/12/24
07:35
WBC 4.4 L
Hgb 15.6
Hct 44.5
Plt Count 179
Sodium 141
Potassium 4.3
Chloride 101
Carbon Dioxide 28
BUN 16
Creatinine 0.6
Glucose 95
Calcium 9.5
Vital Signs:
Vital Signs
Temp Pulse Resp BP Pulse Ox
98.7 F 73 18 136/85 95
06/01/24 11:31 06/01/24 11:31 06/01/24 11:31 06/01/24 11:31 06/01/24 11:31
I&O
05/31/24 06/01/24 06/02/24
06:59 06:59 06:59
Intake Total 480 / 480
Balance 480 / 480
Physical Exam
-
General: Well Developed and No Apparent Distress
HEENT: Normocephalic, Atraumatic and Moist Mucous Membranes
Respiratory: Clear to Auscultation
Cardiac: Regular Rhythm and S1/S2; Negative Murmur, Rub or Gallop
GI: Soft, Nontender, Nondistended and Normal Bowel Sounds; Negative Organomegaly
Rectal: Deferred by Provider
Musculoskeletal: No Clubbing, No Cyanosis and No Edema
Skin: Negative Rash
Neuro: Awake, Alert, Oriented, AO x 3, No Motor Deficits, Nonfocal/Grossly Intact and Central Nerve's Intact; Negative Tremors, Sedated, Slurred Speech or Facial Droop
--- NOTE | 2024-06-01 12:00 | W.PN.NEURO.1 ---
Today's Communication / Plan
-
.
Subjective/Objective
Subjective Data
Date of Service: June 01, 2024
Neurology follow up note
Ms. Machuca reports worsening of anxiety symptoms. No recurrent spells of expressive aphasia. Her blood pressure has improved.
LDL 143, HbA1C 5.1.
Brain MRI showed no acute infarcts.
PMH: QUINTEN, vit D deficiency, GERD
PSH:D&C and R carpal tunnel surgery
SH: ; works for [employer], [employer]; nonsmoker;
FH:father-CML
All:Nitrofurantoin
ROS:Constitutional: Negative. Negative for chills, fever and unexpected weight change.
HENT: Negative for ear pain, hearing loss, tinnitus and trouble swallowing.
Eyes: Negative. Negative for photophobia, pain and visual disturbance.
Respiratory: Negative for cough, choking and shortness of breath.
Cardiovascular: Negative for chest pain, palpitations and leg swelling.
Gastrointestinal: Negative for abdominal pain and vomiting.
Endocrine: Negative. Negative for cold intolerance.
Genitourinary: Negative for dysuria, flank pain and urgency.
Musculoskeletal: Negative for back pain, gait problem, neck pain and neck stiffness.
Skin: Negative for rash.
Allergic/Immunologic: Negative. Negative for immunocompromised state.
Neurological: Negative for dizziness, tremors, seizures, speech difficulty, numbness and headaches.
Psychiatric/Behavioral: Negative for behavioral problems, confusion and hallucinations.
General: Well developed. In no acute distress.
Cardio: Regular rate and rhythm without murmur. Extremities are without cyanosis or edema.
Neuro:
Mental Status: Alert, oriented to person, place, and date. Normal attention and recall. Good fund of knowledge. Follows complex requests across the midline. Comprehension, naming, and repetition intact. Immediate and delayed recall 3/3.
Cranial Nerves: . Pupils are equally round and reactive to light. EOMs full. Visual campbell full to confrontation. No ptosis. No nystagmus. V1-V3 intact to light touch and pinprick bilaterally, symmetric. Face symmetric. Normal hearing AU.
The palate elevated well. SCMs and traps 5/5. Tongue midline. No dysarthria.
Motor: Normal bulk and tone. No pronator or arm drift. Strength 5/5 throughout. No clonus.
Reflexes: 3+ throughout the upper extremities and knees. 2/2 in AJs. Plantar responses flexor bilaterally.
Sensory: Normal pinprick, vibration and JPS.
Coordination: No dysmetria or tremor.
Gait: deferred
Assessment and Plan:
I. Hypertensive emergency
II. Right MCA territory TIA
III. QUINTEN
-Continue Telemetry monitoring.
-Aspiration precautions.
-Restart Lexapro 20 mg once a day
-TTE with bubble studies,
-Continue ASA 81 mg QD
-Plavix 75 mg QD for 21 days.
-Lipitor 40 mg QHS.
-OP Holter monitoring
-DVT prophylaxis.
I personally reviewed all radiology and labs along with past medical records pertinent to current medical problems. Total time spent in patient care is 40 minutes.
Thank you for allowing us to participate in the care of this patient. We will continue to follow. Please do not hesitate to contact us with any questions or concerns.
Objective Data
Vital Signs
Temp Pulse Resp BP Pulse Ox
37.1 C 73 18 136/85 95
06/01/24 11:31 06/01/24 11:31 06/01/24 11:31 06/01/24 11:31 06/01/24 11:31
Lab Results
06/01/24 07:35
06/01/24 07:35
Sodium 141 mmol/L (135-145) 06/01/24 07:35
Potassium 4.3 mmol/L (3.5-5.1) 06/01/24 07:35
BUN 16 mg/dl (7-17) 06/01/24 07:35
Glucose 95 mg/dl (70-99) 06/01/24 07:35
Calcium 9.5 mg/dl (8.4-10.2) 06/01/24 07:35
LDL Cholesterol, Calc 143 mg/dl 06/01/24 07:35
Patient Allergies
nitrofurantoin Allergy (Verified 05/31/24 13:10)
RASH/ITCHING
Vital Signs and Labs
-
Vital Signs and Labs:
Vital Signs
Temp Pulse Resp BP Pulse Ox
37.1 C 73 18 136/85 95
06/01/24 11:31 06/01/24 11:31 06/01/24 11:31 06/01/24 11:31 06/01/24 11:31
Lab Results
06/01/24 07:35
06/01/24 07:35
Sodium 141 mmol/L (135-145) 06/01/24 07:35
Potassium 4.3 mmol/L (3.5-5.1) 06/01/24 07:35
BUN 16 mg/dl (7-17) 06/01/24 07:35
Glucose 95 mg/dl (70-99) 06/01/24 07:35
Calcium 9.5 mg/dl (8.4-10.2) 06/01/24 07:35
LDL Cholesterol, Calc 143 mg/dl 06/01/24 07:35
Medications
-
Medications:
Generic Name Dose Route Start Last Admin
Trade Name Freq PRN Reason Stop Dose Admin
Acetaminophen 650 mg 05/31/24 21:46
Acetaminophen 650 Mg Rectal Suppository RECTAL 06/28/24 21:45
Q4HPRN PRN
MEYERS, mild pain, or temp >100.4F
Acetaminophen 650 mg 05/31/24 21:46
Acetaminophen 325 Mg Tablet PO 06/28/24 21:45
Q4HPRN PRN
MEYERS, mild pain, or temp >100.4F
Alprazolam 0.25 mg 05/31/24 21:50 06/01/24 08:26
Alprazolam 0.25 Mg Tablet PO 06/28/24 21:49 0.25 mg
Q6HPRN PRN Administration
ANXIETY
Aspirin 81 mg 06/01/24 08:00 06/01/24 08:26
Aspirin 81 Mg Chewable Tablet PO 06/29/24 07:59 81 mg
DAILY GONSALO Administration
Atorvastatin Calcium 40 mg 06/01/24 18:00
Atorvastatin (Lipitor) 40 Mg Tablet PO 06/29/24 17:59
QPM GONSALO
Clopidogrel Bisulfate 75 mg 06/01/24 08:00 06/01/24 08:26
Clopidogrel 75 Mg Tablet PO 06/21/24 08:01 75 mg
DAILY GONSALO Administration
Hydralazine HCl 5 mg 05/31/24 21:46
Hydralazine 20 Mg/Ml Vial IV 06/28/24 21:45
Q4HPRN PRN
hypertension
Sodium Chloride 0 flush 05/31/24 22:00
Sodium Chloride 0.9% (Flush) Syringe IV 06/28/24 21:59
PER PROTOCOL GONSALO
Home Medications
-
Home Medications
Quercetin 1 tab PO DAILY 11/19/20
Zinc 1 tab PO DAILY 11/19/20
alprazolam 0.5 mg tablet 0.25 mg PO Q6HPRN PRN ANXIETY 11/19/20
calcium carbonate (calcium) 500 mg PO DAILY 11/19/20
cholecalciferol (vitamin D3) 25 mcg (1,000 unit) tablet 1,000 units PO DAILY 11/19/20
escitalopram oxalate 20 mg tablet 20 mg PO DAILY 11/19/20
multivitamin with folic acid 400 mcg tablet (Tab-A-Slim) 1 tab PO DAILY 11/19/20
omeprazole 10 mg capsule,delayed release 10 mg PO PRN PRN reflux 11/27/20
ondansetron 4 mg disintegrating tablet 4 mg PO Q8H PRN nausea and vomiting #10 tabs 12/19/23
[2024-06-01] MEDS: LEXAPRO 20 MG PO (14:33)
[2024-06-01 15:10] VITALS: BP 136/84
--- NOTE | 2024-06-01 15:26 | PTOTSP ---
Chart reviewed. RN noted that patient has been up ambulating to/from the bathroom independently. Spoke to patient. Patient confirms that she has been up and moving around. When asked, stated that she has no concerns about returning home and
functioning. Notes that she doesn't feel that she needs PT/OT assessment. Educated patient that if situation changes, please have staff reconsult. At this time, no skilled needs and will sign off
--- NOTE | 2024-06-01 15:29 | W.DCSUMMARY ---
Discharge Summary
Discharge Data
Date of Admission: 05/31/24
Date of Discharge: 06/01/24
-
Pending Results: No
Hospital Course
59-year-old female past medical history of severe anxiety is presenting from home with expressive aphasia. Patient underwent CT of the head on admission which was found to be negative. Patient was found to have severely elevated blood pressure on
admission. Patient was eval by neurology. Patient underwent MRI of the brain which is negative for acute stroke. Patient underwent MRA of the head and neck which is negative acute stenosis or aneurysm. Patient was found to severely elevated
blood pressure and cholesterol. Patient was started on atorvastatin. Patient case was agreeable to be started on blood pressure medication with [facility] and to follow-up with primary doctor. Discussed case with neurology who is recommending
patient to be started on aspirin and Plavix dual antiplatelet agents for 21 days and then continue aspirin daily. Patient was agreeable with this plan. Patient was ambulating without difficulty. No further episode of aphasia was noted. Patient
was also recommended follow-up with psychiatry for severe anxiety. Also recommended follow with primary doctor for echocardiogram as outpatient as patient did not want to stay till Monday for echocardiogram.
Discharge Plan
-
Patient Disposition: Home (Routine Discharge)
Discharge Diagnosis/Procedures: Expressive aphasia likely secondary to anxiety versus TIA versus hypertension encephalopathy
Primary hypertension
Hyperlipidemia
Anxiety
Condition: Fair
Diet: Low Cholesterol
Activity: As tolerated
Others Tests: Recommend echocardiogram with bubble study as outpatient via primary doctor
Referrals:
Nguyễn Yen MD [Active] - None
Abrahan Lennon MD [Consulting Staff] - None
Noé Posadas MD [Family Provider] - in less than 1 week
Prescriptions:
New
atorvastatin 40 mg Tablet
40 mg PO QPM 30 Days Qty: 30 0RF
clopidogrel 75 mg Tablet
75 mg PO DAILY 20 Days Qty: 20 0RF
aspirin 81 mg Tablet,Chewable
81 mg PO DAILY 30 Days Qty: 30 0RF
amlodipine [Norvasc] 5 mg tablet
5 mg PO DAILY Qty: 30 0RF
Continued
alprazolam 0.5 MG tablet
0.25 mg PO Q6HPRN PRN (Reason: ANXIETY)
calcium carbonate [calcium] 500 MG tablet
500 mg PO DAILY
escitalopram oxalate 20 MG tablet
20 mg PO DAILY
cholecalciferol (vitamin D3) 1,000 UNITS tablet
1,000 units PO DAILY
multivitamin with folic acid [Tab-A-Slim] 1 TABLET tablet
1 tab PO DAILY
Quercetin
1 tab PO DAILY
omeprazole 10 MG capsule,delayed release(DR/EC)
10 mg PO DAILY
ondansetron 4 mg tablet,disintegrating
4 mg PO Q8H PRN (Reason: nausea and vomiting) Qty: 10 0RF
Discharge Orders:
Discharge Patient (As Directed); Ordered 06/01/24
Ordered By: Ej Tello
Discharge Date and Time
Print Language: URDU
--- NOTE | 2024-06-01 15:50 | W.[place]-PDMP ---
[place]-PD[place]
-
Checked the [place]- Prescription Drug Monitoring Program website, no red flags identified; safe to proceed with prescription.
--- NOTE | 2024-06-01 16:39 | PTCARENOTE ---
Reviewed discharge instructions with patient. Patient verbalizes understanding of teaching. Patient left via wheelchair with staff member. at bedside to transport patient home. IV and tele removed.
[2024-06-01 16:41] VITALS: BP 138/82
== END 2024-06-01 16:59 | disposition home or self-care (01) ==
LOC: 4 EAST ACU 17:18
PROVIDERS: Physician Assistant Medical; Registered Nurse; ADMITTING PHYSICIAN Internal Medicine; ATTENDING PHYSICIAN Hospitalist; CONSULT PHYSICIAN Psychiatry & Neurology Neurology; EMERGENCY PHYSICIAN Emergency Medicine; FAMILY PHYSICIAN Internal Medicine
DX: R47.01 Aphasia (principal); R20.2 Paresthesia of skin; R11.0 Nausea; I10 Essential (primary) hypertension; F32.A Depression, unspecified; F41.1 Generalized anxiety disorder; K21.9 Gastro-esophageal reflux disease without esophagitis; E55.9 Vitamin D deficiency, unspecified; I16.1 Hypertensive emergency; M85.2 Hyperostosis of skull; E78.5 Hyperlipidemia, unspecified; R41.82 Altered mental status, unspecified; H53.9 Unspecified visual disturbance; Z88.3 Allergy status to other anti-infective agents
CPT/HCPCS: 70450; 70544; 70548; 70551; 80048; 80053; 80061; 83036; 85025; 85027; 92610; 93005; 99285; A9585; G0378

== ENCOUNTER → 2024-06-04 08:02 | Outpatient (REF) | payer OTHER, SELFPAY | LOC: RCS 08:02 | PROVIDERS: ATTENDING PHYSICIAN Hospitalist | DX: G45.9 Transient cerebral ischemic attack, unspecified (principal) | CPT/HCPCS: 93225; 93226 ==

== ENCOUNTER → 2024-06-10 08:09 | Outpatient (REF) | payer OTHER, SELFPAY | LOC: HWRCS 08:09 | PROVIDERS: ATTENDING PHYSICIAN Hospitalist; FAMILY PHYSICIAN Internal Medicine | DX: G45.9 Transient cerebral ischemic attack, unspecified (principal) | CPT/HCPCS: 93306 ==

== ENCOUNTER → 2024-12-07 08:31 | Outpatient (REF) | payer OTHER, SELFPAY | LOC: WDC 08:31 | PROVIDERS: ATTENDING PHYSICIAN Obstetrics & Gynecology Gynecology; FAMILY PHYSICIAN Family Medicine | DX: Z12.31 Encounter for screening mammogram for malignant neoplasm of breast (principal) | CPT/HCPCS: 77063; 77067 ==

== ENCOUNTER → 2025-06-06 08:21 | Outpatient (REF) | payer OTHER, SELFPAY | LOC: RAD 08:21 | PROVIDERS: ATTENDING PHYSICIAN Hospitalist | DX: Z13.820 Encounter for screening for osteoporosis (principal) | CPT/HCPCS: 77080 ==